=== PATIENT | female | born 1950 | race Caucasian/White ===

== ENCOUNTER 2017-06-20 08:21 | Outpatient (CLI) | payer MEDICARE, OTHER ==
--- NOTE | 2017-06-20 12:19 | MMO ---
BILATERAL DIGITAL SCREENING MAMMOGRAMS: Date: 06/20/17 HISTORY: 66-year-old female presents for digital screening mammogram. COMPARISON: None. The patient has had multiple prior mammograms at this facility from [id number], but these could not b e found; therefore, this will be interpreted as a baseline study. FINDINGS: This patient's mammogram was interpreted with the assistance of computer-aided detection. Scattered areas of fibroglandular density are noted bilaterally. There are some typically benign kvng cifications scattered in both breasts. There are multiple circumscribed masses in both breasts, some of which appear to be definite intramammary lymph nodes, others are less specific and could represe nt small cysts or fibroadenomas, or intramammary lymph nodes. In the right breast, inner upper aspect, there is an approximately 0.8 x 1.0 cm oval nodule demonstr ated. This has similar features in regards to the other numerous benign-appearing nodules in both br easts, but because of its size, I think that additional imaging is needed for further assessment. Ad ditionally, in review of prior reports, no specific nodular focus was mentioned in the right breast. IMPRESSION: BIRADS 0: Incomplete: Need Additional Imaging Evaluation and/or Prior Mammograms for Comparison Oval circumscribed 0.8 x 1.0 cm diameter mass in the inner upper right breast needs additional imagi ng with right diagnostic mammogram including mag compression spot views in CC and MLO projection and 90 degree mediolateral views, and right breast ultrasound for further assessment. There are numerous circumscribed small nodular masses in both breasts, all of which appear to be mariel y similar in appearance, consistent with multiple benign nodules, some of which are certainly lymph nodes, and others are somewhat less specific, but because they are all circumscribed and given the m ultiple nature of these, are therefore benign. The facility will notify the patient of the need for additional imaging services. POS: JOS[facility]
== END 2017-06-20 08:22 | disposition home or self-care (01) ==
LOC: SCSMAMMO 08:21
PROVIDERS: ATTEND Family Medicine
DX: Z12.31 Encounter for screening mammogram for malignant neoplasm of breast (principal)
CPT/HCPCS: 77067; G0202

== ENCOUNTER 2017-06-26 13:32 | Outpatient (CLI) | payer MEDICARE, OTHER ==
--- NOTE | 2017-06-26 16:04 | ULT ---
RIGHT DIAGNOSTIC MAMMOGRAM 06/26/17 HISTORY: Abnormal screening mammography. Additional views. FINDINGS: Additional views of the right breast shows scattered fibroglandular densities. Multiple partially ob scured oval and lobular isodense nodules of varying size are similar in appearance to the prior stud y and were also seen in the left breast. Metallic marker indicates a skin scar at the medial aspect of the breast. No spiculation or suspicious microcalcifications are evident. Sonographic evaluation of the medial aspects of the right breast in region of original concern shows scattered fibroglandular densities without focal shadowing or aggressive mass. Scattered small cyst s are present throughout the right breast. IMPRESSION: BI-RADS 2: Benign Finding(s) Routine annual screening mammography (for women over age 40). POS: JOS[facility]
== END 2017-06-26 13:33 | disposition home or self-care (01) ==
LOC: MAMMO 13:32
PROVIDERS: ATTEND Family Medicine
DX: R92.2 Inconclusive mammogram (principal)
CPT/HCPCS: 76642; G0206

== ENCOUNTER 2022-09-19 22:16 | Observation (INO) | payer MEDICARE, OTHER ==
[2022-09-19 23:54] LABS: #Basophils 0.1 thou/uL (0.0-0.2); #Eosinphils 0.2 thou/uL (0.0-0.7); #Monocytes 0.8 thou/uL (0.11-0.59); #Neutrophils 6.1 thou/uL (1.40-6.50); %Eosinophils 1.8 % (0.0-10.0); %Lymphocytes 29.3 % (21.0-51.0); %Monocytes 8.3 % (0.0-10.0); %Neutrophils 59.7 % (42.0-75.0); Hemoglobin 14.4 g/dL (12.0-16.0); Mean Corpuscular HGB CONC 35.9 g/dL (32.0-36.0); Mean Corpuscular Hemoglobin 32.6 pg (27.0-31.0); Mean Corpuscular Volume 91.1 fl (78.0-98.0); Mean Platelet Volume 6.4 fL (7.4-10.4); Platelet Count 285 10x3/uL (130-400); RBC Distribution Width 11.5 % (11.5-14.5); White Blood Cell (WBC) Count 10.1 10x3/uL (4.8-10.8)
[2022-09-20] MEDS ORDERED: Ondansetron ODT 4 MG TAB PO PRN (00:04)
[2022-09-20] MEDS ORDERED: Ondansetron PF 4 MG/2 ML Vial IVP PRN (00:04)
[2022-09-20] MEDS ORDERED: Dextrose 5% in Water 1,000 ML IV PRN (00:04)
[2022-09-20] MEDS ORDERED: Dextrose 50% Abboject 50 ML SYRINGE SLOW IVP PRN (00:04)
[2022-09-20] MEDS ORDERED: TETANUS, DIPHTHERIA TOX,ADULT (TDVAX) 0.5 ML VIAL IM ONE (00:04)
[2022-09-20] MEDS ORDERED: hydrALAZINE 20 MG/ML VIAL SLOW IVP PRN (00:04)
[2022-09-20] MEDS ORDERED: Ipratropium/Albuterol 3 ML NEB NEB PRN (00:04)
[2022-09-20 00:15] LABS: ALT (SGPT) 15 U/L (8-55); AST (SGOT) 17 U/L (5-34); Albumin 4.1 g/dL (3.4-4.8); Alkaline Phosphatase 54 U/L (40-110); Anion Gap 17 mmol/L (10-20); BUN (Urea Nitrogen) 25 mg/dL (9.8-20.1); Bilirubin, Total 0.5 mg/dL (0.2-1.2); Calc. Creatinine Clearance 0 mL/min (70-130); Calcium 9.5 mg/dL (7.8-10.44); Carbon Dioxide 22 mmol/L (23-31); Chloride 104 mmol/L (98-107); Estimated GFR 63; Globulin 3.1 g/dL (2.4-3.5); Glucose 114 mg/dL (80-115); Potassium 3.5 mmol/L (3.5-5.1); Protein, Total 7.2 g/dL (5.8-8.1); Sodium 139 mmol/L (136-145)
[2022-09-20] MEDS: Acetaminophen 325 MG TAB PO PRN ×2 (01:03→08:04)
[2022-09-20 01:27] VITALS: BMI 27.3
[2022-09-20 02:15] LABS: Prothrombin Time 13.2 sec (12.0-14.7)
[2022-09-20 02:16] LABS: PTT 26.3 sec (22.9-36.1)
[2022-09-20 02:22] LABS: Magnesium 2.2 mg/dL (1.6-2.6); Phosphorus 3.8 mg/dL (2.3-4.7)
[2022-09-20 04:46] LABS: SARS-CoV-2 NAA Rapid Test Not Detected (NotDetected)
[2022-09-20] MEDS ORDERED: Levothyroxine Sodium 112 MCG TAB PO SCH (06:00)
[2022-09-20] MEDS ORDERED: Potassium Chloride 40 MEQ in Premix Bag 1 BAG IVPB SCH (08:00)
[2022-09-20] MEDS ORDERED: Famotidine 20 MG TAB PO SCH (09:00)
[2022-09-20] MEDS ORDERED: Venlafaxine HCl XR 75 MG CAP PO SCH (09:00)
[2022-09-20] MEDS ORDERED: Potassium Chloride 20 MEQ TAB PO SCH (11:15)
[2022-09-20 13:09] VITALS: BP 117/75; TEMP 97.7
== END 2022-09-20 13:30 | disposition home or self-care (01) ==
LOC: ERS 22:16 → SJJU 23:51 → INTOOBSV 23:51
PROVIDERS: ADMIT Surgery; ATTEND Surgery
DX: S06.5X0A Traumatic subdural hemorrhage without loss of consciousness, initial encounter (principal); E03.9 Hypothyroidism, unspecified; E87.6 Hypokalemia; Z79.890 Hormone replacement therapy; Z79.899 Other long term (current) drug therapy; Z20.822 Contact with and (suspected) exposure to COVID-19; W01.198A Fall on same level from slipping, tripping and stumbling with subsequent striking against other object, initial encounter; Y92.481 Parking lot as the place of occurrence of the external cause
CPT/HCPCS: 70450; 80053; 83735; 84100; 85025; 85610; 85730; 99285; U0002; 36415; G0390; J3480

== ENCOUNTER 2022-11-01 09:09 | Day surgery (SDC) | payer MEDICARE, OTHER ==
[2022-10-30 14:02] VITALS: BMI 26.2
[~2022-11-01 09:09] MED LIST: EPINEPHrine 0.3 MG in Ophthalmic Irrigation Solution 500 ML IRR SCH
[2022-11-01] MEDS ORDERED: Cyclopentolate 1% Opth Drop 2 ML BOT ONE (09:24)
[2022-11-01] MEDS ORDERED: Phenylephrine 2.5% Ophth Soln 5 ML BOT ONE (09:24)
[2022-11-01] MEDS ORDERED: fentaNYL PF 100 MCG/2 ML SYRINGE ONE (09:34)
[2022-11-01] MEDS ORDERED: Famotidine/PF 20 mg/2ml Vial ONE (09:34)
[2022-11-01] MEDS ORDERED: Maxitrol 0.1% Opth Oint 3.5 GM TUBE ONE (10:56)
[2022-11-01] MEDS ORDERED: Lidocaine 4% PF 5 ML AMP ONE (10:56)
[2022-11-01] MEDS ORDERED: Ondansetron PF 4 MG/2 ML Vial ONE (10:56)
[2022-11-01] MEDS ORDERED: ePHEDrine 50 MG/ML VIAL ONE (10:56)
[2022-11-01] MEDS ORDERED: Triamcinolone 40 MG/ML VIAL ONE (10:56)
[2022-11-01] MEDS ORDERED: Lidocaine 1% PF 5 ML VIAL ONE (10:56)
[2022-11-01] MEDS ORDERED: CEFAZOLIN 1 GM VIAL ONE (10:56)
[2022-11-01] MEDS ORDERED: Bupivacaine 0.75% 10 ML VIAL ONE (10:56)
[2022-11-01] MEDS ORDERED: PROPOFOL 200 MG/20 ML VIAL ONE (10:56)
[2022-11-01] MEDS ORDERED: Fentanyl 100 MCG/2 ML VIAL ONE (12:42)
== END 2022-11-01 13:50 | disposition home or self-care (01) ==
LOC: SDC 09:09
PROVIDERS: ATTEND Ophthalmology Retina Specialist
PROC: 08PJ3JZ Removal of Synthetic Substitute from Right Lens, Percutaneous Approach (ICD-10-PCS; principal; 2022-11-01)
PROC: 08RJ3JZ Replacement of Right Lens with Synthetic Substitute, Percutaneous Approach (ICD-10-PCS; 2022-11-01)
DX: T85.22XA Displacement of intraocular lens, initial encounter (principal); Z98.41 Cataract extraction status, right eye; Z98.42 Cataract extraction status, left eye; Z79.890 Hormone replacement therapy; Z79.899 Other long term (current) drug therapy; Z98.890 Other specified postprocedural states; Y83.8 Other surgical procedures as the cause of abnormal reaction of the patient, or of later complication, without mention of misadventure at the time of the procedure
CPT/HCPCS: 66986; V2632; J0171; J0690; J2405; J2704; J3010; J3301; J3490; S0028

== ENCOUNTER 2023-07-28 17:13 | Observation (INO) | payer MEDICARE, OTHER ==
[2023-07-28] MEDS ORDERED: Acetaminophen 500 MG TAB ONE (17:43)
[2023-07-28] MEDS ORDERED: Ondansetron PF 4 MG/2 ML Vial ONE (17:43)
[2023-07-28 18:26] LABS: #Basophils 0.1 thou/uL (0.0-0.2); #Eosinphils 0.2 thou/uL (0.0-0.7); #Monocytes 0.7 thou/uL (0.11-0.59); #Neutrophils 5.3 thou/uL (1.40-6.50); %Eosinophils 1.6 % (0.0-10.0); %Lymphocytes 31.1 % (21.0-51.0); %Monocytes 7.7 % (0.0-10.0); %Neutrophils 58.3 % (42.0-75.0); Hematocrit 44.2 % (36.0-47.0); Hemoglobin 15.4 g/dL (12.0-16.0); Mean Corpuscular HGB CONC 34.8 g/dL (32.0-36.0); Mean Corpuscular Hemoglobin 30.9 pg (27.0-31.0); Mean Corpuscular Volume 88.6 fl (78.0-98.0); Mean Platelet Volume 8.8 fL (7.4-10.4); Platelet Count 307 10x3/uL (130-400); RBC Distribution Width 12.9 % (11.5-14.5); Red Blood Cell (RBC) Count 4.99 mill/uL (4.20-5.40); White Blood Cell (WBC) Count 9.1 10x3/uL (4.8-10.8)
[2023-07-28 18:30] LABS: Bacteria/HPF None Seen HPF (None Seen); Bilirubin Negative (Negative); Blood, Urine Negative (Negative); CAUTI Indications for Culture Pelvic or flank pain; Clarity Clear (Clear); Glucose, Urine (Dipstick) Normal (Negative); Ketone, Urine Negative (Negative); Leukocyte Negative Leu/uL (Negative); Nitrite Negative (Negative); Protein, Urine (Dipstick) Negative (Neg-Trace); RBC/HPF 0-3 HPF (0-3); Specific Gravity, Urine 1.022 (1.002-1.036); Squamous Epithelial 0-3 HPF (0-3); WBC/HPF 0-3 HPF (0-3); pH, Urine 5.5 (5.0-9.0)
[2023-07-28 18:33] LABS: Urine Culture Reflex No No
[2023-07-28 19:06] LABS: Albumin 4.3 g/dL (3.4-4.8)
[2023-07-28 19:07] LABS: Chloride 100 mmol/L (98-107); Potassium 3.9 mmol/L (3.5-5.1); Sodium 138 mmol/L (136-145)
[2023-07-28 19:08] LABS: Calcium 9.7 mg/dL (7.8-10.44)
[2023-07-28 19:09] LABS: Globulin 3.6 g/dL (2.4-3.5); Glucose 111 mg/dL (83-110); Protein, Total 7.9 g/dL (5.8-8.1)
[2023-07-28 19:10] LABS: Anion Gap 18 mmol/L (10-20); Carbon Dioxide 24 mmol/L (23-31)
[2023-07-28 19:11] LABS: Bilirubin, Total 1.4 mg/dL (0.2-1.2)
[2023-07-28 19:12] LABS: Alkaline Phosphatase 170 U/L (40-110); Calc. Creatinine Clearance 0 mL/min (70-130); Estimated GFR 44
[2023-07-28 19:13] LABS: BUN (Urea Nitrogen) 21 mg/dL (9.8-20.1)
[2023-07-28 19:14] LABS: AST (SGOT) 183 U/L (5-34)
[2023-07-28 19:15] LABS: ALT (SGPT) 175 U/L (8-55); Lipase 50 U/L (8-78)
[2023-07-28] MEDS ORDERED: Sodium Chloride 0.9% 100 ML ONE (20:43)
[2023-07-28] MEDS ORDERED: Piperacillin/Tazobactam 4.5 GM VIAL ONE (20:43)
[2023-07-28] MEDS ORDERED: Acetaminophen 325 MG TAB PO PRN (22:15)
[2023-07-28] MEDS ORDERED: Ondansetron PF 4 MG/2 ML Vial IVP PRN (22:15)
[2023-07-28] MEDS ORDERED: Ondansetron ODT 4 MG TAB SL PRN (22:15)
[2023-07-28 22:43] VITALS: BMI 25.8
[2023-07-29] MEDS ORDERED: Piperacillin/Tazobactam 3.375 GM in Sodium Chloride 0.9% 100 ML IVPB SCH (01:00)
[2023-07-29] MEDS ORDERED: Bupivacaine PF 0.5% 30 ML VIAL ONE (09:37)
[2023-07-29] MEDS ORDERED: EPINEPHrine 1 MG/ML VIAL ONE (09:37)
[2023-07-29] MEDS ORDERED: Dexamethasone 4 mg/ml Vial ONE (09:44)
[2023-07-29] MEDS ORDERED: Ondansetron PF 4 MG/2 ML Vial ONE ×2 (09:44→11:08)
[2023-07-29] MEDS ORDERED: Rocuronium Bromide 10 MG/ML (10ML VIAL) ONE ×2 (09:44)
[2023-07-29] MEDS ORDERED: Fentanyl 250 MCG/5 ML VIAL ONE ×2 (09:44→11:35)
[2023-07-29] MEDS ORDERED: PROPOFOL 20 ML ONE (09:44)
[2023-07-29] MEDS ORDERED: CEFAZOLIN 1 GM VIAL ONE (10:11)
[2023-07-29] MEDS ORDERED: Ondansetron HCl/PF 4 MG/2 ML Vial IVP PRN (10:21)
[2023-07-29] MEDS ORDERED: Ketorolac Tromethamine 30 MG/ML VIAL IVP PRN (10:21)
[2023-07-29] MEDS ORDERED: Promethazine HCl 25 MG/ML VIAL IM PRN (10:21)
[2023-07-29] MEDS ORDERED: PACU-Morphine 4MG/ML VIAL SLOW IVP PRN (10:21)
[2023-07-29] MEDS ORDERED: Labetalol HCl 100 MG/20 ML VIAL ONE (10:25)
[2023-07-29] MEDS ORDERED: hydrALAZINE 20 MG/ML VIAL ONE (10:25)
[2023-07-29] MEDS ORDERED: PHENYLEPHRINE-NS 100 MCG/ML 10 ML SYRINGE ONE (10:37)
[2023-07-29] MEDS ORDERED: SUGAMMADEX SODIUM 200 MG/2 ML VIAL ONE (10:47)
[2023-07-29] MEDS ORDERED: fentaNYL 50 mcg/mL 1 mL Vial ONE (11:20)
[2023-07-29] MEDS ORDERED: Scopolamine 1 mg/72 hour Patch ONE (11:21)
[2023-07-29] MEDS ORDERED: Acetaminophen/Codeine 30-300mg Tablet PO PRN (11:39)
[2023-07-29] MEDS ORDERED: Promethazine HCl 25 MG SUPP PR SCH (11:45)
[2023-07-29] MEDS: Ondansetron ODT 4 MG TAB PO PRN (15:36)
[2023-07-29] MEDS: Acetaminophen 325 MG TAB PO PRN (17:16)
[2023-07-29] MEDS: Metoclopramide HCl 10 MG TAB PO SCH ×2 (17:17→19:28)
[2023-07-30] MEDS: Acetaminophen 325 MG TAB PO PRN (03:54)
[2023-07-30] MEDS: Ondansetron ODT 4 MG TAB PO PRN (03:56)
[2023-07-30] MEDS: Metoclopramide HCl 10 MG TAB PO SCH (06:49)
[2023-07-30 07:48] VITALS: BP 121/66; TEMP 98.1
== END 2023-07-30 10:25 | disposition home or self-care (01) ==
LOC: ERS 17:13 → SJJU 21:24
PROVIDERS: ADMIT Surgery; ATTEND Surgery
PROC: 0FT44ZZ Resection of Gallbladder, Percutaneous Endoscopic Approach (ICD-10-PCS; principal; 2023-07-29)
DX: K80.12 Calculus of gallbladder with acute and chronic cholecystitis without obstruction (principal)
CPT/HCPCS: 47562; 76705; 80053; 81001; 83690; 85025; 96365; 96375; 96376; 99285; C1889; G0378 ×4; J0171; J0360; J3010; 88304; J0690; J1100; J2405; J2543; J2704; J3490; Q0162; S0020